=== PATIENT | male | born 1985 | race Caucasian/White ===

== ENCOUNTER 2017-03-03 12:39 | Emergency (ER) | payer OTHER ==
[~2017-03-03] VITALS: Ht 172.7 cm; Wt 90.9 kg
[~2017-03-03 12:39] MED LIST: BACTRIM DS1 TAB PO; BENADRYL 50MG C50 MG PO; BENTYL20 MG PO; CEPHALEXIN500 MG PO; CORTISPORIN OTI10 ML AU; CYCLOBENZAPR10 MG PO; FLEXERIL PO; GABAPENTIN300 MG PO; HYDROCO/APAP1 T13 PO; HYDROCO/APAP1 TA9 PO; LIPITOR10 M1 PO; MECLIZINE12.5 M1 PO; NAPROSYN500 MG PO; NORCO1 TA1 PO; PERCOCET 5/325M1 TAB PO; PHENERGAN25 MG/TAB PO; PREVACID30 M3 PO; SUBOXONE1 MI1 SL; TRAMADOL HYDROC50 MG PO; ULTRAM50 M1 PO; VIIBRYD10 MG PO; XANAX0.5 MG PO; ZESTRIL5 M1 PO; ZESTRIL5 MG PO; ZOFRAN ODT4 MG PO
[2017-03-03 13:47] LABS: HEMATOCRIT 40.5 % (39.0-50.0); HEMOGLOBIN 14.2 g/dl (14.0-18.0); IMMATURE GRANULOCYTES 0.2 % (0.0-1.0); MEAN CELL VOLUME 88.6 fL CALC (80.0-100.0); MEAN CORPUSCULAR HGB 31.1 pG CALC (26.0-32.0); MEAN CORPUSCULAR HGB CONC 35.1 g/L CALC (32.0-36.0); NEUT# 3.17 thou/uL (1.82-7.42); RED BLOOD COUNT 4.57 mill/uL (4.70-6.10); RED CELL DISTRI WIDTH 12.8 % (11.5-15.5)
[2017-03-03 14:02] LABS: ALBUMIN 4.6 g/dL (3.2-5.0); ALKALINE PHOSPHATASE 52 u/l (38-126); ANION GAP 14 (6-22 (CALC)); BILIRUBIN, TOTAL 0.4 mg/dL (0.0-1.4); BUN 8 mg/dL (9-20); BUN/CREATININE RATIO 13 (12-20 (CALC)); CALCIUM 9.7 mg/dL (8.4-10.2); CARBON DIOXIDE 27 mmol/l (22-30); CHLORIDE 104 mmol/l (95-108); CREATININE 0.7 mg/dL (0.7-1.3); GFR > 60 ML/MIN (>=60 (CALC)); GFR FOR AFR.AMER. > 60 ML/MIN (>=60 (CALC)); GLUCOSE 92 mg/dL (75-110); LIPASE 36 u/l (23-300); POTASSIUM 3.8 mmol/l (3.5-5.1); SGOT/AST 19 u/l (17-59); SGPT/ALT 35 u/l (21-72); SODIUM 142 mmol/l (137-146); TOTAL PROTEIN 7.1 g/dL (6.3-8.2)
[2017-03-03 14:35] LABS: URINE BILIRUBIN - DIPSTICK NEGATIVE (NEGATIVE); URINE BLOOD DIPSTICK NEGATIVE (NEGATIVE); URINE CLARITY CLEAR; URINE COLOR YELLOW; URINE GLUCOSE - DIPSTICK NEGATIVE (NEGATIVE); URINE KETONE NEGATIVE (NEGATIVE); URINE LEUK ESTERASE NEGATIVE (NEGATIVE); URINE NITRITE - DIPSTICK NEGATIVE (Negative); URINE PROTEIN - DIPSTICK NEGATIVE (NEG-TRACE); URINE SPECIFIC GRAVITY <=1.005; URINE UROBILINOGEN - DIPSTICK 0.2 E.U./dL (0.2)
[2017-03-03] MEDS ORDERED: COLACE100 MG PO (17:27)
[2017-03-03] MEDS ORDERED: PERCOCET 5/325M1 TAB PO (17:27)
[2017-03-03] MEDS ORDERED: CIPROFLOXACN750 MG PO (17:27)
[2017-03-03 17:37] VITALS: BP 121/71
== END 2017-03-03 17:58 | disposition home or self-care (01) | DRG 392 ==
LOC: ED 12:39
PROVIDERS: Emergency Medicine
DX: R10.32 Left lower quadrant pain (principal); K59.00 Constipation, unspecified; R10.31 Right lower quadrant pain; N43.3 Hydrocele, unspecified

== ENCOUNTER 2017-03-06 09:02 | Emergency (ER) | payer OTHER ==
[~2017-03-06] VITALS: Ht 172.7 cm; Wt 98.0 kg
[~2017-03-06 09:02] MED LIST changes: +CIPROFLOXACN750 MG PO; +COLACE100 MG PO
[2017-03-06 10:09] LABS: URINE BILIRUBIN - DIPSTICK NEGATIVE (NEGATIVE); URINE BLOOD DIPSTICK NEGATIVE (NEGATIVE); URINE CLARITY CLEAR; URINE COLOR YELLOW; URINE GLUCOSE - DIPSTICK NEGATIVE (NEGATIVE); URINE KETONE NEGATIVE (NEGATIVE); URINE LEUK ESTERASE NEGATIVE (NEGATIVE); URINE NITRITE - DIPSTICK NEGATIVE (Negative); URINE PH 7.5 (4.5-8.0); URINE PROTEIN - DIPSTICK NEGATIVE (NEG-TRACE); URINE SPECIFIC GRAVITY 1.015; URINE UROBILINOGEN - DIPSTICK 0.2 E.U./dL (0.2)
[2017-03-06 10:10] LABS: ALBUMIN 4.8 g/dL (3.2-5.0); ALKALINE PHOSPHATASE 63 u/l (38-126); BILIRUBIN, TOTAL 0.5 mg/dL (0.0-1.4); BUN 8 mg/dL (9-20); BUN/CREATININE RATIO 12 (12-20 (CALC)); CALCIUM 9.9 mg/dL (8.4-10.2); CARBON DIOXIDE 25 mmol/l (22-30); CHLORIDE 106 mmol/l (95-108); CREATININE 0.7 mg/dL (0.7-1.3); GFR > 60 ML/MIN (>=60 (CALC)); GFR FOR AFR.AMER. > 60 ML/MIN (>=60 (CALC)); GLUCOSE 142 mg/dL (75-110); POTASSIUM 3.9 mmol/l (3.5-5.1); SGOT/AST 26 u/l (17-59); SGPT/ALT 37 u/l (21-72); TOTAL PROTEIN 7.6 g/dL (6.3-8.2)
[2017-03-06 10:13] LABS: ANION GAP 16 (6-22 (CALC)); SODIUM 143 mmol/l (137-146)
[2017-03-06 10:14] LABS: BARBITURATES NEGATIVE (NEGATIVE); COCAINE NEGATIVE (NEGATIVE); METHADONE NEGATIVE (NEGATIVE); TETRAHYDROCANNABIONOL NEGATIVE (NEGATIVE); TRICYLIC ANTIDEPRESSANTS NEGATIVE (NEGATIVE)
[2017-03-06 10:15] LABS: OXCYCODONE POSITIVE (NEGATIVE)
[2017-03-06 10:20] LABS: HEMATOCRIT 46.4 % (39.0-50.0); HEMOGLOBIN 16.1 g/dl (14.0-18.0); IMMATURE GRANULOCYTES 0.4 % (0.0-1.0); MEAN CELL VOLUME 89.2 fL CALC (80.0-100.0); MEAN CORPUSCULAR HGB CONC 34.7 g/L CALC (32.0-36.0); NEUT# 4.39 thou/uL (1.82-7.42); RED BLOOD COUNT 5.2 mill/uL (4.70-6.10); RED CELL DISTRI WIDTH 13.2 % (11.5-15.5)
[2017-03-06 11:09] VITALS: BP 126/69
== END 2017-03-06 11:14 | disposition home or self-care (01) | DRG 728 ==
LOC: ED 09:02
PROVIDERS: Emergency Medicine
DX: N45.2 Orchitis (principal); R50.9 Fever, unspecified; N50.82 Scrotal pain; R10.9 Unspecified abdominal pain

== ENCOUNTER 2017-03-16 12:25 | Emergency (ER) | payer OTHER ==
[~2017-03-16] VITALS: Ht 172.7 cm; Wt 100.0 kg
[2017-03-16 13:12] LABS: HEMATOCRIT 46.3 % (39.0-50.0); IMMATURE GRANULOCYTES 0.3 % (0.0-1.0); MEAN CELL VOLUME 89.9 fL CALC (80.0-100.0); MEAN CORPUSCULAR HGB 31.1 pG CALC (26.0-32.0); MEAN CORPUSCULAR HGB CONC 34.6 g/L CALC (32.0-36.0); NEUT# 4.54 thou/uL (1.82-7.42); RED BLOOD COUNT 5.15 mill/uL (4.70-6.10); RED CELL DISTRI WIDTH 13.2 % (11.5-15.5); URINE BILIRUBIN - DIPSTICK NEGATIVE (NEGATIVE); URINE BLOOD DIPSTICK NEGATIVE (NEGATIVE); URINE CLARITY CLEAR; URINE COLOR YELLOW; URINE GLUCOSE - DIPSTICK NEGATIVE (NEGATIVE); URINE KETONE NEGATIVE (NEGATIVE); URINE LEUK ESTERASE NEGATIVE (Negative); URINE NITRITE - DIPSTICK NEGATIVE (Negative); URINE PH 5.5 (4.5-8.0); URINE PROTEIN - DIPSTICK NEGATIVE (NEG-TRACE); URINE UROBILINOGEN - DIPSTICK 0.2 E.U./dL (0.2)
[2017-03-16 13:19] LABS: ALBUMIN 5.2 g/dL (3.2-5.0); ALKALINE PHOSPHATASE 73 u/l (38-126); ANION GAP 20 (6-22 (CALC)); BILIRUBIN, TOTAL 0.7 mg/dL (0.0-1.4); BUN 9 mg/dL (9-20); BUN/CREATININE RATIO 14 (12-20 (CALC)); CALCIUM 10.3 mg/dL (8.4-10.2); CARBON DIOXIDE 20 mmol/l (22-30); CHLORIDE 108 mmol/l (95-108); CREATININE 0.6 mg/dL (0.7-1.3); GFR > 60 ML/MIN (>=60 (CALC)); GFR FOR AFR.AMER. > 60 ML/MIN (>=60 (CALC)); GLUCOSE 131 mg/dL (75-110); LIPASE 89 u/l (23-300); POTASSIUM 3.8 mmol/l (3.5-5.1); SGOT/AST 18 u/l (17-59); SGPT/ALT 34 u/l (21-72); SODIUM 145 mmol/l (137-146); TOTAL PROTEIN 8.2 g/dL (6.3-8.2)
[2017-03-16] MEDS ORDERED: MOTRIN400 MG PO (14:32)
[2017-03-16] MEDS ORDERED: ZOFRAN4 M1 PO (14:32)
[2017-03-16 14:51] VITALS: BP 144/69
== END 2017-03-16 15:00 | disposition home or self-care (01) | DRG 392 ==
LOC: ED 12:25
PROVIDERS: Family Medicine
DX: R10.31 Right lower quadrant pain (principal); R50.9 Fever, unspecified; R11.2 Nausea with vomiting, unspecified
CPT/HCPCS: Q9967

== ENCOUNTER 2017-03-27 21:04 | Emergency (ER) | payer OTHER ==
[~2017-03-27] VITALS: Ht 172.7 cm; Wt 95.5 kg
[~2017-03-27 21:04] MED LIST changes: +MOTRIN400 MG PO; +ZOFRAN4 M1 PO
[2017-03-27 21:43] LABS: HEMATOCRIT 43.7 % (39.0-50.0); HEMOGLOBIN 15.1 g/dl (14.0-18.0); IMMATURE GRANULOCYTES 0.3 % (0.0-1.0); MEAN CELL VOLUME 90.5 fL CALC (80.0-100.0); MEAN CORPUSCULAR HGB 31.3 pG CALC (26.0-32.0); MEAN CORPUSCULAR HGB CONC 34.6 g/L CALC (32.0-36.0); NEUT# 4.12 thou/uL (1.82-7.42); RED BLOOD COUNT 4.83 mill/uL (4.70-6.10); RED CELL DISTRI WIDTH 12.7 % (11.5-15.5)
[2017-03-27] MEDS ORDERED: TRAMADOL HCL50 MG PO (21:44)
[2017-03-27 22:17] LABS: ALBUMIN 4.5 g/dL (3.2-5.0); ALKALINE PHOSPHATASE 55 u/l (38-126); ANION GAP 14 (6-22 (CALC)); BILIRUBIN, TOTAL 0.4 mg/dL (0.0-1.4); BUN 11 mg/dL (9-20); BUN/CREATININE RATIO 13 (12-20 (CALC)); CALCIUM 9.2 mg/dL (8.4-10.2); CARBON DIOXIDE 27 mmol/l (22-30); CHLORIDE 104 mmol/l (95-108); CREATININE 0.9 mg/dL (0.7-1.3); GFR > 60 ML/MIN (>=60 (CALC)); GFR FOR AFR.AMER. > 60 ML/MIN (>=60 (CALC)); GLUCOSE 115 mg/dL (75-110); POTASSIUM 3.4 mmol/l (3.5-5.1); SGOT/AST 19 u/l (17-59); SGPT/ALT 41 u/l (21-72); SODIUM 142 mmol/l (137-146); TOTAL PROTEIN 7.3 g/dL (6.3-8.2)
[2017-03-27 22:29] LABS: MYOGLOBIN 18 ng/mL (0 - 121)
[2017-03-27 22:50] VITALS: BP 124/74
== END 2017-03-27 22:50 | disposition home or self-care (01) | DRG 313 ==
LOC: ED 21:04
PROVIDERS: Emergency Medicine
DX: R07.9 Chest pain, unspecified (principal); E11.9 Type 2 diabetes mellitus without complications; F17.210 Nicotine dependence, cigarettes, uncomplicated; R06.02 Shortness of breath

== ENCOUNTER 2017-03-30 12:03 | Emergency (ER) | payer OTHER ==
[~2017-03-30] VITALS: Ht 172.7 cm; Wt 85.0 kg
[~2017-03-30 12:03] MED LIST changes: +TRAMADOL HCL50 MG PO
[2017-03-30 13:02] LABS: URINE BILIRUBIN - DIPSTICK NEGATIVE (NEGATIVE); URINE BLOOD DIPSTICK NEGATIVE (NEGATIVE); URINE CLARITY CLEAR; URINE COLOR YELLOW; URINE GLUCOSE - DIPSTICK NEGATIVE (NEGATIVE); URINE KETONE NEGATIVE (NEGATIVE); URINE LEUK ESTERASE NEGATIVE (NEGATIVE); URINE NITRITE - DIPSTICK NEGATIVE (Negative); URINE PROTEIN - DIPSTICK NEGATIVE (NEG-TRACE); URINE SPECIFIC GRAVITY <=1.005; URINE UROBILINOGEN - DIPSTICK 0.2 E.U./dL (0.2)
[2017-03-30 13:04] LABS: HEMATOCRIT 46.9 % (39.0-50.0); HEMOGLOBIN 16.4 g/dl (14.0-18.0); MEAN CORPUSCULAR HGB 31.5 pG CALC (26.0-32.0); NEUT# 3.37 thou/uL (1.82-7.42); RED BLOOD COUNT 5.21 mill/uL (4.70-6.10); RED CELL DISTRI WIDTH 12.6 % (11.5-15.5)
[2017-03-30 13:08] LABS: BARBITURATES NEGATIVE (NEGATIVE); COCAINE NEGATIVE (NEGATIVE); METHADONE NEGATIVE (NEGATIVE); OXCYCODONE NEGATIVE (NEGATIVE); TETRAHYDROCANNABIONOL NEGATIVE (NEGATIVE); TRICYLIC ANTIDEPRESSANTS NEGATIVE (NEGATIVE)
[2017-03-30 13:15] LABS: ALBUMIN 4.9 g/dL (3.2-5.0); ALKALINE PHOSPHATASE 72 u/l (38-126); ANION GAP 16 (6-22 (CALC)); BILIRUBIN, TOTAL 0.3 mg/dL (0.0-1.4); BUN 6 mg/dL (9-20); BUN/CREATININE RATIO 9 (12-20 (CALC)); CALCIUM 9.7 mg/dL (8.4-10.2); CARBON DIOXIDE 26 mmol/l (22-30); CHLORIDE 107 mmol/l (95-108); CREATININE 0.7 mg/dL (0.7-1.3); GFR > 60 ML/MIN (>=60 (CALC)); GFR FOR AFR.AMER. > 60 ML/MIN (>=60 (CALC)); GLUCOSE 128 mg/dL (75-110); POTASSIUM 4.1 mmol/l (3.5-5.1); SGOT/AST 23 u/l (17-59); SGPT/ALT 43 u/l (21-72); SODIUM 145 mmol/l (137-146); TOTAL PROTEIN 8.1 g/dL (6.3-8.2)
[2017-03-30 13:16] LABS: PROTHROMBIN TIME 10.4 SECONDS (9.0-12.5)
[2017-03-30 13:27] LABS: MYOGLOBIN 19 ng/mL (0 - 121)
[2017-03-30] MEDS ORDERED: ASPIRIN 81 LOW81 MG PO (13:45)
[2017-03-30 14:01] VITALS: BP 134/74
== END 2017-03-30 14:06 | disposition home or self-care (01) | DRG 66 ==
LOC: ED 12:03
PROVIDERS: Emergency Medicine
DX: I63.9 Cerebral infarction, unspecified (principal); Z72.0 Tobacco use

== ENCOUNTER 2017-04-22 12:54 | Emergency (ER) | payer OTHER ==
[~2017-04-22] VITALS: Ht 172.7 cm; Wt 91.0 kg
[~2017-04-22 12:54] MED LIST changes: +ASPIRIN 81 LOW81 MG PO
[2017-04-22 15:41] LABS: URINE BILIRUBIN - DIPSTICK NEGATIVE (NEGATIVE); URINE BLOOD DIPSTICK NEGATIVE (NEGATIVE); URINE CLARITY CLEAR; URINE COLOR YELLOW; URINE GLUCOSE - DIPSTICK NEGATIVE (NEGATIVE); URINE KETONE NEGATIVE (NEGATIVE); URINE LEUK ESTERASE NEGATIVE (NEGATIVE); URINE NITRITE - DIPSTICK NEGATIVE (Negative); URINE PH 6.5 (4.5-8.0); URINE PROTEIN - DIPSTICK NEGATIVE (NEG-TRACE); URINE SPECIFIC GRAVITY 1.015; URINE UROBILINOGEN - DIPSTICK 0.2 E.U./dL (0.2)
[2017-04-22 15:46] LABS: BARBITURATES NEGATIVE (NEGATIVE); COCAINE NEGATIVE (NEGATIVE); METHADONE NEGATIVE (NEGATIVE); OXCYCODONE NEGATIVE (NEGATIVE); TETRAHYDROCANNABIONOL NEGATIVE (NEGATIVE); TRICYLIC ANTIDEPRESSANTS NEGATIVE (NEGATIVE)
[2017-04-22] MEDS ORDERED: ULTRAM50 M1 PO (16:10)
[2017-04-22 16:18] VITALS: BP 157/93
== END 2017-04-22 16:20 | disposition home or self-care (01) | DRG 696 ==
LOC: ED 12:54
PROVIDERS: Emergency Medicine
DX: R30.0 Dysuria (principal)

== ENCOUNTER 2017-05-24 19:25 | Emergency (ER) | payer OTHER ==
[~2017-05-24] VITALS: Ht 172.7 cm; Wt 113.0 kg
[2017-05-24] MEDS ORDERED: LORTAB 10-325 M1 TAB PO (21:32)
[2017-05-24] MEDS ORDERED: FLEXERIL PO (21:32)
[2017-05-24 21:45] VITALS: BP 139/65
== END 2017-05-24 21:50 | disposition home or self-care (01) | DRG 552 ==
LOC: ED 19:25
DX: S16.1XXA Strain of muscle, fascia and tendon at neck level, initial encounter (principal); S39.012A Strain of muscle, fascia and tendon of lower back, initial encounter; W07.XXXA Fall from chair, initial encounter; Y93.9 Activity, unspecified; Y92.009 Unspecified place in unspecified non-institutional (private) residence as the place of occurrence of the external cause

== ENCOUNTER 2017-06-27 11:25 | Emergency (ER) | payer OTHER ==
[~2017-06-27] VITALS: Ht 172.7 cm; Wt 104.0 kg
[~2017-06-27 11:25] MED LIST changes: +LORTAB 10-325 M1 TAB PO
[2017-06-27 12:16] LABS: HEMATOCRIT 43.2 % (39.0-50.0); HEMOGLOBIN 14.9 g/dl (14.0-18.0); IMMATURE GRANULOCYTES 0.3 % (0.0-1.0); MEAN CELL VOLUME 89.8 fL CALC (80.0-100.0); MEAN CORPUSCULAR HGB CONC 34.5 g/L CALC (32.0-36.0); NEUT# 3.41 thou/uL (1.82-7.42); RED BLOOD COUNT 4.81 mill/uL (4.70-6.10)
[2017-06-27 12:22] LABS: URINE BILIRUBIN - DIPSTICK NEGATIVE (NEGATIVE); URINE BLOOD DIPSTICK NEGATIVE (NEGATIVE); URINE COLOR YELLOW; URINE GLUCOSE - DIPSTICK NEGATIVE (NEGATIVE); URINE KETONE NEGATIVE (NEGATIVE); URINE LEUK ESTERASE NEGATIVE (NEGATIVE); URINE NITRITE - DIPSTICK NEGATIVE (Negative); URINE PROTEIN - DIPSTICK NEGATIVE (NEG-TRACE); URINE SPECIFIC GRAVITY <=1.005; URINE UROBILINOGEN - DIPSTICK 0.2 E.U./dL (0.2)
[2017-06-27 12:24] LABS: URINE CLARITY CLEAR
[2017-06-27 12:38] LABS: ALBUMIN 4.6 g/dL (3.2-5.0); ALKALINE PHOSPHATASE 60 u/l (38-126); ANION GAP 15 (6-22 (CALC)); BILIRUBIN, TOTAL 0.5 mg/dL (0.0-1.4); BUN 12 mg/dL (9-20); BUN/CREATININE RATIO 18 (12-20 (CALC)); CALCIUM 9.4 mg/dL (8.4-10.2); CARBON DIOXIDE 24 mmol/l (22-30); CHLORIDE 109 mmol/l (95-108); CREATININE 0.7 mg/dL (0.7-1.3); GFR > 60 ML/MIN (>=60 (CALC)); GFR FOR AFR.AMER. > 60 ML/MIN (>=60 (CALC)); GLUCOSE 110 mg/dL (75-110); SGOT/AST 20 u/l (17-59); SGPT/ALT 38 u/l (21-72); SODIUM 145 mmol/l (137-146); TOTAL PROTEIN 7.2 g/dL (6.3-8.2)
[2017-06-27 13:42] VITALS: BP 121/74
== END 2017-06-27 13:53 | disposition home or self-care (01) | DRG 392 ==
LOC: ED 11:25
PROVIDERS: Emergency Medicine
DX: R10.31 Right lower quadrant pain (principal); M54.5 Low back pain; R11.2 Nausea with vomiting, unspecified

== ENCOUNTER 2017-08-15 07:54 | Emergency (ER) | payer OTHER ==
[~2017-08-15] VITALS: Ht 172.7 cm; Wt 97.0 kg
[2017-08-15] MEDS ORDERED: FLEXERIL PO (08:18)
[2017-08-15] MEDS ORDERED: TORADOL PO (08:18)
[2017-08-15 08:31] VITALS: BP 134/84
== END 2017-08-15 08:48 | disposition home or self-care (01) | DRG 93 ==
LOC: ED 07:54
DX: G89.29 Other chronic pain (principal); F17.210 Nicotine dependence, cigarettes, uncomplicated; M54.5 Low back pain

== ENCOUNTER 2017-10-03 12:41 | Emergency (ER) | payer OTHER ==
[~2017-10-03] VITALS: Ht 172.7 cm; Wt 90.9 kg
[~2017-10-03 12:41] MED LIST changes: +TORADOL PO
[2017-10-03 13:25] LABS: HEMATOCRIT 44.3 % (39.0-50.0); HEMOGLOBIN 15.3 g/dl (14.0-18.0); IMMATURE GRANULOCYTES 0.3 % (0.0-1.0); MEAN CORPUSCULAR HGB 30.7 pG CALC (26.0-32.0); MEAN CORPUSCULAR HGB CONC 34.5 g/L CALC (32.0-36.0); NEUT# 3.84 thou/uL (1.82-7.42); RED BLOOD COUNT 4.98 mill/uL (4.70-6.10); RED CELL DISTRI WIDTH 11.9 % (11.5-15.5)
[2017-10-03 13:53] LABS: ANION GAP 15 (6-22 (CALC)); BUN 6 mg/dL (9-20); BUN/CREATININE RATIO 8 (12-20 (CALC)); CARBON DIOXIDE 25 mmol/l (22-30); CHLORIDE 107 mmol/l (95-108); CREATININE 0.8 mg/dL (0.7-1.3); GFR > 60 ML/MIN (>=60 (CALC)); GFR FOR AFR.AMER. > 60 ML/MIN (>=60 (CALC)); POTASSIUM 4.1 mmol/l (3.5-5.1); SODIUM 143 mmol/l (137-146)
[2017-10-03 15:40] VITALS: BP 120/68
[2017-10-03] MEDS ORDERED: MOTRIN400 MG PO (15:41)
== END 2017-10-03 15:40 | disposition home or self-care (01) | DRG 313 ==
LOC: ED 12:41
PROVIDERS: Family Medicine
DX: R07.89 Other chest pain (principal); F17.210 Nicotine dependence, cigarettes, uncomplicated

== ENCOUNTER 2017-12-03 21:49 | Emergency (ER) | payer OTHER ==
[~2017-12-03] VITALS: Ht 172.7 cm; Wt 66.0 kg
[2017-12-03 22:52] LABS: URINE BILIRUBIN - DIPSTICK NEGATIVE (NEGATIVE); URINE BLOOD DIPSTICK NEGATIVE (NEGATIVE); URINE COLOR YELLOW; URINE GLUCOSE - DIPSTICK NEGATIVE (NEGATIVE); URINE KETONE NEGATIVE (NEGATIVE); URINE LEUK ESTERASE NEGATIVE (NEGATIVE); URINE NITRITE - DIPSTICK NEGATIVE (Negative); URINE PROTEIN - DIPSTICK NEGATIVE (NEG-TRACE); URINE SPECIFIC GRAVITY <=1.005; URINE UROBILINOGEN - DIPSTICK 0.2 E.U./dL (0.2)
[2017-12-03 22:53] LABS: URINE CLARITY SL CLOUDY
[2017-12-03] MEDS ORDERED: TORADOL PO (23:33)
[2017-12-03 23:43] VITALS: BP 151/92
== END 2017-12-03 23:50 | disposition home or self-care (01) | DRG 694 ==
LOC: ED 21:49
PROVIDERS: Emergency Medicine
DX: N23 Unspecified renal colic (principal); F17.210 Nicotine dependence, cigarettes, uncomplicated; F41.9 Anxiety disorder, unspecified

== ENCOUNTER 2018-01-13 09:55 | Emergency (ER) | payer OTHER ==
[~2018-01-13] VITALS: Ht 172.7 cm; Wt 81.0 kg
[2018-01-13 10:40] LABS: HEMATOCRIT 45.3 % (39.0-50.0); HEMOGLOBIN 15.5 g/dl (14.0-18.0); IMMATURE GRANULOCYTES 0.4 % (0.0-1.0); MEAN CORPUSCULAR HGB 31.1 pG CALC (26.0-32.0); MEAN CORPUSCULAR HGB CONC 34.2 g/L CALC (32.0-36.0); NEUT# 4.62 thou/uL (1.82-7.42); RED BLOOD COUNT 4.98 mill/uL (4.70-6.10); RED CELL DISTRI WIDTH 13.5 % (11.5-15.5)
[2018-01-13 10:51] LABS: ALBUMIN 4.8 g/dL (3.2-5.0); ALKALINE PHOSPHATASE 73 u/l (38-126); ANION GAP 21 (6-22 (CALC)); BILIRUBIN, TOTAL 0.4 mg/dL (0.0-1.4); BUN 19 mg/dL (9-20); BUN/CREATININE RATIO 25 (12-20 (CALC)); CARBON DIOXIDE 23 mmol/l (22-30); CHLORIDE 106 mmol/l (95-108); CREATININE 0.7 mg/dL (0.7-1.3); GFR > 60 ML/MIN (>=60 (CALC)); GFR FOR AFR.AMER. > 60 ML/MIN (>=60 (CALC)); POTASSIUM 4.1 mmol/l (3.5-5.1); SGOT/AST 20 u/l (17-59); SGPT/ALT 44 u/l (21-72); SODIUM 146 mmol/l (137-146); TOTAL PROTEIN 8.1 g/dL (6.3-8.2)
[2018-01-13] MEDS ORDERED: HYDROCO/APAP1 T11 PO (11:00)
[2018-01-13 11:33] LABS: BARBITURATES NEGATIVE (NEGATIVE); COCAINE NEGATIVE (NEGATIVE); METHADONE NEGATIVE (NEGATIVE); TETRAHYDROCANNABIONOL NEGATIVE (NEGATIVE); TRICYLIC ANTIDEPRESSANTS NEGATIVE (NEGATIVE)
[2018-01-13 11:34] LABS: OXCYCODONE NEGATIVE (NEGATIVE)
[2018-01-13 11:58] VITALS: BP 137/80
== END 2018-01-13 11:59 | disposition home or self-care (01) | DRG 93 ==
LOC: ED 09:55
PROVIDERS: Emergency Medicine
DX: R47.89 Other speech disturbances (principal); F17.200 Nicotine dependence, unspecified, uncomplicated; R20.2 Paresthesia of skin; R51 Headache

== ENCOUNTER 2018-01-26 09:48 | Emergency (ER) | payer OTHER ==
[~2018-01-26] VITALS: Ht 172.7 cm; Wt 90.0 kg
[~2018-01-26 09:48] MED LIST changes: +HYDROCO/APAP1 T11 PO
[2018-01-26] MEDS ORDERED: NEURONTIN300 MG PO (10:36)
[2018-01-26] MEDS ORDERED: HYDROCO/APAP1 TA9 PO (10:36)
[2018-01-26] MEDS ORDERED: DEBROX6.5 % OT (10:43)
[2018-01-26] MEDS ORDERED: CORTISPORIN OTI10 M2 AU (10:43)
[2018-01-26 10:48] VITALS: BP 131/81
== END 2018-01-26 10:48 | disposition home or self-care (01) | DRG 156 ==
LOC: ED 09:48
PROC: 3E1B78Z Irrigation of Ear using Irrigating Substance, Via Natural or Artificial Opening (ICD-10-PCS; principal; 2018-01-26)
PROC: 3E1B78Z Irrigation of Ear using Irrigating Substance, Via Natural or Artificial Opening (ICD-10-PCS; 2018-01-26)
DX: H61.23 Impacted cerumen, bilateral (principal); F41.9 Anxiety disorder, unspecified; M54.9 Dorsalgia, unspecified; G89.29 Other chronic pain; E11.9 Type 2 diabetes mellitus without complications; F17.210 Nicotine dependence, cigarettes, uncomplicated